=== PATIENT | female | born 1990 | race Asian ===

== ENCOUNTER 2016-10-28 03:47 | Emergency (ER) | payer OTHER ==
[~2016-10-28] VITALS: Ht 157.5 cm; Wt 50.9 kg
[2016-10-28] MEDS ORDERED: SODIUM CHLORIDE 0.9% 1000ML 1,000 ML IV ONE (03:54)
[2016-10-28] MEDS ORDERED: SODIUM CHLORIDE 0.9% 1000ML 1,000 ML IV STA (03:54)
--- NOTE | 2016-10-28 03:58 | EMERGENCY ROOM VISIT NOTE ---
History Report prepared by Kathy: Quirino Bray Under the Supervision of: Dr. Torsten Bazan M.D. First contact with patient: 03:49 Chief Complaint: ABDOMINAL PAIN Stated Complaint: ABDOMINAL PAIN History of Present Illness The patient is a 26 year old female who presents to the Emergency Room with complaints of sharp right lower quadrant abdominal pain that began 5 hours ago. The patient rates her pain moderate in severity. She was lying in bed when the pain began. It has been constant since. She has been vomiting since the pain began. She denies any fever or back pain. She does not have any medical problems or a history of kidney stones. She denies any vaginal discharge or urinary symptoms. Source of History: patient Onset: 5 hours ago Position: abdomen (RLQ) Symptom Intensity: moderate Quality: sharp Timing: constant Associated Symptoms: + vomiting, No chest pain, No fevers, No urinary symptoms Review of Systems See HPI for pertinent positives & negatives. A total of 10 systems reviewed and were otherwise negative. Past Medical & Surgical Medical Problems: (1) No Known Active Medical Problems Old medical records were reviewed. Nurse's notes were reviewed and I agree with. Family History Patient reports no known family medical history. Social History Smokeless Tobacco Use: No Drug Use: none Marital Status: single Occupation Status: student Current/Historical Medications Scheduled PRN Oxycodone Immediate Rel Tab (Roxicodone Ir), 1-2 TAB PO Q4H PRN for Severe Pain Allergies Coded Allergies: No Known Allergies (Unverified , 10/28/16) Physical Exam Vital Signs Date Time Temp Pulse Resp B/P Pulse Ox O2 Delivery O2 Flow Rate FiO2 10/28/16 06:53 83 18 90/49 99 10/28/16 05:11 81 18 90/49 99 Room Air 10/28/16 04:07 36.6 80 18 103/72 99 Room Air Physical Exam General: Non ill appearing young female. Well developed well nourished in no acute distress, breathing comfortably on room air. Normal speech HEENT: Normal cephalic atraumatic. Pupils are equal round and reactive to light. Sclerae anicteric. Extraocular movements are intact. Oropharynx is pink with moist mucous membranes. No swelling of the mouth lips or tongue. Neck: Supple with a midline trachea. No meningeal signs or stiffness, no JVD or bruits. No Stridor. Chest: Clear to auscultation bilaterally. No wheezes or rhonchi. No increased work of breathing. Heart: regular rate and rhythm. Abdomen: Soft, mildly tender in the RLQ, nondistended without rebound guarding or rigidity. Extremities: No cyanosis clubbing or edema. No calf tenderness or assymetry Spine/Back. Non tender to palpation. No CVA tenderness Skin: Good turgor without rashes. Neurologic exam: Cranial nerves two through 12 are intact. Motor and sensation are intact and symmetrical throughout. Medical Decision & Procedures ER Provider Diagnostic Interpretation: Radiology results as stated below per my review and radiologist interpretation: CT ABDOMEN & PELVIS: Obstructive right ureteral stone measuring about 5 mm approximately level of superior L5 vertebral body. Nonobstructive left renal stones. No evidence for appendicitis. Incidentals include low-density left renal lesion. Radiologist: Baljit Horton M.D Laboratory Results 10/28/16 04:00 Red Blood Count 4.06, Mean Corpuscular Volume 85.2, Mean Corpuscular Hemoglobin 29.8, Mean Corpuscular Hemoglobin Concent 35.0, Mean Platelet Volume 8.1, Neutrophils (%) (Auto) 86.3, Lymphocytes (%) (Auto) 8.7, Monocytes (%) (Auto) 3.9, Eosinophils (%) (Auto) 0.4, Basophils (%) (Auto) 0.4, Neutrophils # (Auto) 13.54, Lymphocytes # (Auto) 1.37, Monocytes # (Auto) 0.61, Eosinophils # (Auto) 0.06, Basophils # (Auto) 0.06 10/28/16 04:00 Test 10/28/16 00:00 10/28/16 04:00 10/28/16 05:00 Urine Test NEG (NEG) White Blood Count 15.69 K/uL (4.8-10.8) Red Blood Count 4.06 M/uL (4.2-5.4) Hemoglobin 12.1 g/dL (12.0-16.0) Hematocrit 34.6 % (37-47) Mean Corpuscular Volume 85.2 fL (80-100) Mean Corpuscular Hemoglobin 29.8 pg (25-34) Mean Corpuscular Hemoglobin Concent 35.0 g/dl (32-36) Platelet Count 346 K/uL (130-400) Mean Platelet Volume 8.1 fL (7.4-10.4) Neutrophils (%) (Auto) 86.3 % Lymphocytes (%) (Auto) 8.7 % Monocytes (%) (Auto) 3.9 % Eosinophils (%) (Auto) 0.4 % Basophils (%) (Auto) 0.4 % Neutrophils # (Auto) 13.54 K/uL (1.4-6.5) Lymphocytes # (Auto) 1.37 K/uL (1.2-3.4) Monocytes # (Auto) 0.61 K/uL (0.11-0.59) Eosinophils # (Auto) 0.06 K/uL (0-0.5) Basophils # (Auto) 0.06 K/uL (0-0.2) RDW Standard Deviation 40.2 fL (36.4-46.3) RDW Coefficient of Variation 12.8 % (11.5-14.5) Immature Granulocyte % (Auto) 0.3 % Immature Granulocyte # (Auto) 0.05 K/uL (0.00-0.02) Anion Gap 11.0 mmol/L (3-11) Est Creatinine Clear Calc Drug Dose 99.5 ml/min Estimated GFR () 141.2 Estimated GFR (Non- 121.8 BUN/Creatinine Ratio 25.1 (10-20) Calcium Level 8.4 mg/dl (8.5-10.1) Total Bilirubin 0.6 mg/dl (0.2-1) Direct Bilirubin 0.1 mg/dl (0-0.2) Aspartate Amino Transf (AST/SGOT) 14 U/L (15-37) Alanine Aminotransferase (ALT/SGPT) 21 U/L (12-78) Alkaline Phosphatase 44 U/L (45-117) Total Protein 6.8 gm/dl (6.4-8.2) Albumin 3.7 gm/dl (3.4-5.0) Lipase 249 U/L (73-393) Human Chorionic Gonadotropin, Qual NEG (NEG) Urine Color YELLOW Urine Appearance CLEAR (CLEAR) Urine pH 6.0 (4.5-7.5) Urine Specific [place] 1.021 (1.000-1.030) Urine Protein NEG (NEG) Urine Glucose (UA) NEG (NEG) Urine Ketones TRACE (NEG) Urine Occult Blood 1+ (NEG) Urine Nitrite NEG (NEG) Urine Bilirubin NEG (NEG) Urine Urobilinogen NEG (NEG) Urine Leukocyte Esterase NEG (NEG) Urine WBC (Auto) 1-5 /hpf (0-5) Urine RBC (Auto) 10-30 /hpf (0-4) Urine Hyaline Casts (Auto) 1-5 /lpf (0-5) Urine Epithelial Cells (Auto) 10-20 /lpf (0-5) Urine Bacteria (Auto) NEG (NEG) Laboratory studies as stated above per my review. Medications Administered Medications (Trade) Dose Ordered Sig/Dov Route Start Time Stop Time Status Last Admin Dose Admin Sodium Chloride 1,000 ml @ 999 mls/hr Q1H1M STAT IV 10/28/16 03:54 10/28/16 04:54 DC 10/28/16 04:14 999 MLS/HR Sodium Chloride (Nss 1000ml) 1,000 ml @ 150 mls/hr Q6H40M ONCE IV 10/28/16 03:54 10/28/16 10:33 10/28/16 03:54 150 MLS/HR Ketorolac Tromethamine (Toradol Inj) 30 mg NOW STAT IV 10/28/16 04:26 10/28/16 04:27 DC 10/28/16 04:35 30 MG Oxycodone HCl (Roxicodone Immediate Rel 5MG Home Pack) 1 homepack UD ONCE PO 10/28/16 06:45 10/28/16 06:46 DC 10/28/16 06:45 1 HOMEPACK ED Course 0349: Past medical records reviewed. The patient was evaluated in room B7, and a complete history and physical examination were performed. 0354: Sodium Chloride 1000 ml @ 150 mls/hr IV, Sodium Chloride 1000 ml @ 999 mls /hr IV 0426: Toradol Inj 30 mg IV 0427: Upon reassessment, the patient seemed to be in pain. She was given Toradol. 0636: The patient is still having some pain. I offered admission as an inpatient for pain, but she declined. She does not want to miss her classes. I discussed with her what to return for. 0642: Upon reevaluation, the patient is resting. I discussed the results and treatment plan with her. She verbalized agreement of the treatment plan. The patient was discharged home. Medical Decision Differentials include ovarian cyst, kidney stone, appendicitis, electrolyte or metabolic abnormality, and infection. This patient comes in as described above. She was placed in room B7. She is here for treatment and evaluation of right lower quadrant pain came on suddenly. She did receive IV fentanyl 50 g and IV Zofran 4 mg as well as IV fluids ambulance. I did give ALS medical command she seemed to do much better. Multiple blood testing was obtained here as well as urinalysis and culture. She was reassessed frequently. She started having more pain and was given Toradol 30 iv. She has no fever. She does have an elevated white count likely secondary pain and stress. Her urinalysis does not suggest UTI with a culture pending test was negative. She's no acute electrode metabolic abdomen. CAT scan does show 5 mm stone on the right with obstructive uropathy. The pain started coming back. I talked to her at length and I recommended we admit her for pain management further hydration and observation. She adamantly declines incision wants to go to class. At this point, she's nothing to suggest thet she has infection. I recommended she strain her urine drink lots of fluids use ibuprofen for pain and OxyIR for breakthrough pain. She was warned that OxyIR could make her drowsy and do not take for drinking, driving, working. I encourage her return ER if pain is not adequately controlled, worsening of symptoms, fever chills, any new problems or concerns and follow up with the [facility] today for recheck. Again she declines admission and will be discharged to home. Impression Primary Impression: Kidney stone Additional Impression: Renal colic Scribe Attestation The scribe's documentation has been prepared under my direction and personally reviewed by me in its entirety. I confirm that the note above accurately reflects all work, treatment, procedures, and medical decision making performed by me. Departure Information Dispostion Home / Self-Care Prescriptions Oxycodone Immediate Rel Tab (ROXICODONE IR) 5 Mg Tab 1-2 TAB PO Q4H Y for Severe Pain, #24 TAB Prov: Torsten Bazan M.D. 10/28/16 Referrals [facility] (PCP) Forms HOME CARE DOCUMENTATION FORM, IMPORTANT VISIT INFORMATION Patient Instructions My [facility] Additional Instructions Rest. Drink plenty of fluids Strain your urine Use ibuprofen 400 mg every 6 hours, take with food For breakthrough pain or more severe pain, may use OxyIR 5 mg, one or 2 pills every 4-6 hours as needed OxyIR may make you drowsy and do not take before drinking, driving, working Return if: Increasing pain, worsening of symptoms, fever or chills, pain not adequately controlled, any new problems or concerns Follow-up with your doctor tomorrow for recheck Problem Qualifiers
[2016-10-28 04:07] VITALS: TEMP 36.6; Ht 157.5 cm; Wt 50.9 kg
[2016-10-28 04:15] LABS: BASO % 0.4 %; BASO ABS # 0.06 K/uL (0-0.2); COMPLETE YES; EOS % 0.4 %; HEMATOCRIT 34.6 % (37-47); IG% 0.3 %; LYMPH % 8.7 %; LYMPH ABS # 1.37 K/uL (1.2-3.4); MEAN CELL VOLUME 85.2 fL (80-100); MEAN CORPUSCULAR HEMOGLOBIN 29.8 pg (25-34); MEAN PLATELET VOLUME 8.1 fL (7.4-10.4); MONO % 3.9 %; NEUT % 86.3 %; PLATELET COUNT 346 K/uL (130-400); RED BLOOD COUNT 4.06 M/uL (4.2-5.4); WHITE BLOOD COUNT 15.69 K/uL (4.8-10.8)
[2016-10-28] MEDS ORDERED: KETOROLAC TROMETHAMINE 30 MG/ML VIAL IV STA (04:26)
[2016-10-28 04:40] LABS: BUN/CREATININE RATIO 25.1 (10-20); CALCIUM 8.4 mg/dl (8.5-10.1); CREATININE 0.69 mg/dl (0.60-1.20)
[2016-10-28 04:46] LABS: POTASSIUM 3.1 mmol/L (3.5-5.1)
[2016-10-28 04:51] LABS: PREG INTERNAL NEGATIVE QC NEG CLEAR BACKGROUND; PREG INTERNAL POSITIVE QC POS CONTROL LINE
[2016-10-28 05:30] LABS: URINE APPEARANCE CLEAR (CLEAR); URINE BILIRUBIN NEG (NEG); URINE COLOR YELLOW; URINE NITRITE NEG (NEG); URINE SPECIFIC GRAVITY 1.021 (1.000-1.030); UROBILINOGEN NEG (NEG)
[2016-10-28 05:41] LABS: MANUAL MICROSCOPIC REQUIRED? NO; REVIEW REQ? NO
[2016-10-28] MEDS ORDERED: OXYC1TAB3 PO (06:39)
[2016-10-28] MEDS ORDERED: OXYCODONE IR HOME PACK PO ONE (06:45)
[2016-10-28 06:53] VITALS: BP 90/49; PULSE 83; O2SAT 99
--- NOTE | 2016-10-28 07:18 | DIAGNOSTIC IMAGING REPORT ---
ABDOMEN AND PELVIS CT WITHOUT CONTRAST CT DOSE: 301.52 mGy.cm HISTORY: Flank pain eval for stone, appy TECHNIQUE: Multiaxial CT images of the abdomen and pelvis were performed without the use of intravenous and oral contrast according to the standard department stone protocol. COMPARISON STUDY: None. FINDINGS: Lung bases are clear. Liver spleen and pancreas appear unremarkable. 5 mm obstructing calculus mid right ureter. Mild right hydroureteronephrosis. Nonobstructing lower pole left renal calcification. 2 cm hypodense nodule left kidney possibly representing a cyst. Bowel pattern is considered nonobstructive. No free fluid within the pelvic cul-de-sac. IMPRESSION: 1. 5 mm obstructing calculus mid right ureter. 2. Lower pole left renal nonobstructing calculus Electronically signed by: Brad Love M.D. 10/28/2016 7:16 AM Dictated Date/Time: 10/28/2016 7:14 AM
== END 2016-10-28 06:55 | disposition home or self-care (01) ==
LOC: EDBD 03:47 → C.EDB 03:48
DX: N20.0 Calculus of kidney (principal)

== ENCOUNTER 2017-05-21 15:28 | Emergency (ER) | payer OTHER ==
[~2017-05-21] VITALS: Ht 160 cm; Wt 57.9 kg
[2017-05-21 15:34] VITALS: Ht 160 cm; Wt 57.9 kg
[2017-05-21] MEDS ORDERED: ACETAMINOPHEN 500 MG TAB PO STA (16:00)
--- NOTE | 2017-05-21 16:03 | EMERGENCY ROOM VISIT NOTE ---
History First contact with patient: 15:43 Chief Complaint: ILLNESS Stated Complaint: FEEL VERY COLD History of Present Illness The patient is a 26 year old female who presents to the Emergency Room with complaints of feeling achy and cold for the last 24 hours. The patient did not take her temperature at home. She said that her friend felt her forehead and thought that she felt warm. She also complains of a mild nonproductive cough. No chest pain or shortness of breath. She also had 2 episodes of diarrhea. No abdominal pain, nausea or vomiting. No recent travel. She did not take anything for her symptoms. She denies any sick contacts. She denies any severe headache or neck pain. She denies any urinary symptoms. Review of Systems 10 system review performed and negative unless noted in HPI or below Past Medical/Surgical History Medical Problems: (1) No Known Active Medical Problems Family History Patient reports no known family medical history. Social History Smoking Status: Never Smoker Drug Use: none Marital Status: single Occupation Status: student Current/Historical Medications Scheduled Sulfa/Trimethoprim (Bactrim Ds 800MG/160MG), 1 TAB PO BID Physical Exam Vital Signs Date Time Temp Pulse Resp B/P (MAP) Pulse Ox O2 Delivery O2 Flow Rate FiO2 05/21/17 15:34 36.4 75 18 102/56 98 Room Air Physical Exam VITALS: Vitals are noted on the nurse's note and reviewed by myself. Vital signs stable. GENERAL: 26-year-old female, in no acute distress, nondiaphoretic, well- developed well-nourished. SKIN: The skin was without rashes, erythema, edema, or bruising. HEAD: Normocephalic atraumatic. EYES: Pupils equal round and reactive to light and accommodation. Conjunctivae without injection, sclerae without icterus. Extraocular movements intact. MOUTH: Mucous membranes moist. Tonsils are not enlarged. Pharynx without erythema or exudate. Uvula midline. Airway patent. Tongue does not deviate. NECK: Supple without nuchal rigidity. Lymphadenopathy in the posterior cervical chain bilaterally. Cervical spine is nontender. No JVD. HEART: Regular rate and rhythm without murmurs gallops or rubs. LUNGS: Clear to auscultation bilaterally without wheezes, rales or rhonchi. No accessory muscle use. ABDOMEN: Positive bowel sounds x 4.Soft, nontender, without organomegaly. No guarding or rebound tenderness. MUSCULOSKELETAL: No muscle atrophy, erythema, or edema noted. Strength 5/5 throughout. NEURO: Patient was alert and oriented to person place and time. Normal sensation to touch. No focal neurological deficits. Medical Decision & Procedures ER Provider Diagnostic Interpretation: CXR IMPRESSION: No active disease in the chest. Laboratory Results Test 05/21/17 16:10 05/21/17 18:18 Urine Test NEG (NEG) Urine Color DK YELLOW Urine Appearance CLEAR (CLEAR) Urine pH 6.0 (4.5-7.5) Urine Specific [place] 1.031 (1.000-1.030) Urine Protein NEG (NEG) Urine Glucose (UA) NEG (NEG) Urine Ketones TRACE (NEG) Urine Occult Blood NEG (NEG) Urine Nitrite NEG (NEG) Urine Bilirubin NEG (NEG) Urine Urobilinogen NEG (NEG) Urine Leukocyte Esterase SMALL (NEG) Urine WBC (Auto) 1-5 /hpf (0-5) Urine RBC (Auto) 0-4 /hpf (0-4) Urine Hyaline Casts (Auto) 5-10 /lpf (0-5) Urine Epithelial Cells (Auto) 20-30 /lpf (0-5) Urine Bacteria (Auto) NEG (NEG) Medications Administered Medications (Trade) Dose Ordered Sig/Dov Route Start Time Stop Time Status Last Admin Dose Admin Acetaminophen (Tylenol Tab) 1,000 mg NOW STAT PO 05/21/17 16:00 05/21/17 16:01 DC 05/21/17 16:13 1,000 MG Trimethoprim/ Sulfamethoxazole (Septra Ds 800/ 160MG Tab) 1 tab NOW ONCE PO 05/21/17 18:15 05/21/17 18:16 DC 05/21/17 18:51 1 TAB ED Course The patient was seen and examined She was given 1 g of Tylenol A chest x-ray was performed. The patient was unable to provide a urine sample for the first 2 hours during her ER visit. Upon reassessment, the patient was resting comfortably. We discussed the results of her chest x-ray she voiced understanding. The patient began complaining that again she felt cold. Vital signs were repeated. No fever was noted. A urine dipstick was performed. She was given 1 dose of Bactrim DS. Discharge instructions were reviewed, and she was discharged in good condition Medical Decision Differential diagnosis: Bronchitis, pneumonia, strep pharyngitis, viral pharyngitis, influenza , other viral syndrome This patient is a 26-year-old female that presents to emergency department complaining of body aches and feeling cold. She is nontoxic in appearance. She did not have a fever in the emergency department. She has not taking any [id number] medications such as Tylenol or ibuprofen to mask a fever. Her clinical exam was not consistent with tonsillitis. I ordered a chest x-ray to rule out pneumonia. I also ordered a urinalysis to rule out UTI. No acute cardiopulmonary disease was noted. The patient was only able to provide a little bit of urine. A dipstick was performed and consistent with positive leuk esterase and WBCs. Based on this and her subjective fever,the patient was given a course of Bactrim. Her urine was sent for culture. She seemed happy with the plan of care. I believe she is stable to be discharged home. She was instructed to follow-up at [facility] if she had no improvement in her symptoms. She will return here with any worsening symptoms. This chart was completed in part utilizing [employer] Speech Voice Recognition software. Attempts were made to minimize the grammatical errors, random word insertions, pronoun errors and incomplete sentences. Any formal questions or concerns about the content, text or information contained within the body of this dictation should be directly addressed to the provider for clarification. Medication Reconcilliation Current Medication List: was personally reviewed by me Blood Pressure Screening Patient's blood pressure: Normal blood pressure Impression Primary Impression: Fever Departure Information Dispostion Home / Self-Care Condition GOOD Prescriptions Sulfa/Trimethoprim (Bactrim Ds 800MG/160MG) Tab 1 TAB PO BID for 7 Days, #13 TAB Prov: Kita Benjamin PA-C 05/21/17 Referrals No Doctor, Assigned (PCP) Patient Instructions My [facility] Additional Instructions You were evaluated in the emergency department for a possible fever. You did not have a fever while in the emergency department. It does appear that you have a urinary tract infection. Please take the entire course of antibiotics. Take this antibiotic with food. Ibuprofen 400 mg and/or Tylenol 500 mg every 8 hours for fever or pain relief. You may also alternate these medications for more effective pain relief: Ibuprofen --4 HRS--> Tylenol --4 HRS--> ibuprofen --4 HRS--> Tylenol .... Please follow-up with [facility] if your symptoms do not improve within the next 5 days. Return to the emergency department if you have any of the following symptoms: -Fever of 103F or greater -Persistent vomiting - Persistent diarrhea -Lethargy -Chest pain -Shortness of breath -Any other new or concerning symptoms.
--- NOTE | 2017-05-21 16:32 | DIAGNOSTIC IMAGING REPORT ---
TWO VIEW CHEST CLINICAL HISTORY: Fever. FINDINGS: PA and lateral chest radiographs are obtained. No prior studies are available for comparison at the time of dictation. The cardiomediastinal silhouette is unremarkable. The lungs and pleural spaces are clear. There is no pneumothorax. The bony thorax appears intact. IMPRESSION: No active disease in the chest. Electronically signed by: Henrik Villalba M.D. 05/21/2017 4:30 PM Dictated Date/Time: 05/21/2017 4:30 PM
[2017-05-21 17:30] VITALS: TEMP 37.1
[2017-05-21] MEDS ORDERED: SULFAMETHOXAZOLE/TRIMETHOPRIM DS 800/160MG TAB PO ONE (18:15)
[2017-05-21] MEDS ORDERED: SULF800T23 PO (18:15)
[2017-05-21 18:35] LABS: URINE APPEARANCE CLEAR (CLEAR); URINE BILIRUBIN NEG (NEG); URINE COLOR DK YELLOW; URINE EPITHELIAL CELL AUTO 20-30 /lpf (0-5); URINE NITRITE NEG (NEG); URINE SPECIFIC GRAVITY 1.031 (1.000-1.030); UROBILINOGEN NEG (NEG)
[2017-05-21 18:36] LABS: MANUAL MICROSCOPIC REQUIRED? NO; REVIEW REQ? NO
[2017-05-21 19:00] VITALS: BP 110/62; PULSE 58; O2SAT 99
== END 2017-05-21 19:00 | disposition home or self-care (01) ==
LOC: C.EDB 15:30 → C.EDC 19:00
DX: R50.9 Fever, unspecified (principal); R05 Cough; R19.7 Diarrhea, unspecified